=== PATIENT | male | born 1975 ===

== ENCOUNTER 2020-07-03 13:32 | Observation (INO) ==
[2020-07-03] MEDS ORDERED: NORMAL SALINE 1,000 ML IV ONE ×2 (14:38→15:52)
[2020-07-03] MEDS ORDERED: KETOROLAC TROMETHAMINE 30 MG/ML VIAL IV ONE (14:38)
[2020-07-03] MEDS ORDERED: ACETAMINOPHEN 1,000 MG/100 ML BTL IV ONE (14:38)
[2020-07-03 14:43] LABS: Hematocrit 45.1 % (42.0-52.0); Hemoglobin 15.2 gm/dL (13.5-18.0); Mean Cell Volume 83.5 fl (78-100); Mean Corpuscular Hemoglobin 28.1 pg (27-31); Mean Corpuscular Hgb Conc 33.7 g/dl (32-36); Mean Platelet Volume 9.2 fl (8-11.3); Platelet Count 357 K/mm3 (150-450); Red Cell Distribution Width 13.1 % (11.5-14.0); White Blood Count 7.3 K/mm3 (4.0-10.5)
[2020-07-03 14:47] LABS: Total Cells Counted 100
--- NOTE | 2020-07-03 14:47 | ERNOTE ---
Date of Service: 07/03/20 Time Seen by Provider: 07/03/20 14:33 Stated Complaint: covid positive uri Presenting Symptoms:: cough, other - SOB Source: patient Exam Limitations: no limitations Immunizations: IMMUNIZATION HX Immunizations Up to Date Yes History of Influenza Vaccine No Hx Pneumococcal Vaccination No Allergies/Adverse Reactions: Allergies No Known Allergies Allergy (Unverified 07/03/20 14:14) Home Medications: HOME MEDICATIONS NK 07/03/20 [Last Taken Unknown] - History of Present Ilness Narrative: Patient presents to the ED for SOB. He developed symptoms on the and had positive COVID test on the . His SOB has worsened. Worse with exertion and better with rest. CP with cough and breathing. Fevers. Has not seen anyone else for this. No vomiting or abdominal pain. Timing: constant, getting worse Severity: severe Frequency/Possible Cause: Reports: other - COVID Modifying Factors - Improves: Reports: rest Modifying Factors - Worsens: Reports: activity Associated Symptoms: Reports: chest pain/soreness, cough, shortness of breath, fever/chills Prior Treatment: Denies: recently seen Review of Systems - Review of Systems Constitutional: Absent: fever EYE: Present: no symptoms reported ENT: Absent: sore throat Respiratory: Present: See HPI Cardiology: Present: See HPI Gastrointestinal/Abdominal: Absent: abdominal pain Genitourinary: Present: no symptoms reported All Other Systems: All systems neg except as marked Medical History (Last Reviewed 07/03/20 @ 14:45 by Emery Butler MD) No pertinent past medical history Surgical History: Surgical History (Last Reviewed 07/03/20 @ 14:45 by Emery Butler MD) H/O hand surgery left History of ankle surgery Family History: Family History (Last Reviewed 07/03/20 @ 14:45 by Emery Butler MD) Other No pertinent family history Social History: (Last Reviewed 07/03/20 @ 14:45 by Emery Butler MD) Tobacco: Smoking Status: Former smoker Alcohol: alcohol intake frequency: holiday/special occasion Substance Use: substance use type: does not use Physical Exam - Physical Exam General Appearance: Present: alert, no apparent distress Head Exam: Present: normal inspection, no evidence of injury Eye Exam: Normal inspection: bilateral, PERRL: bilateral Ears, Nose, Throat: Present: normal ENT inspection Neck: Present: normal inspection Respiratory: Present: other - coarse breath sounds bilaterally. Mild tachypnea Cardiovascular/Chest: Present: tachycardia Gastrointestinal/Abdominal: Present: normal bowel sounds, nontender, nondistended, soft Back Exam: Absent: CVA tenderness (R), CVA tenderness (L) Extremity Exam: Present: normal inspection, normal range of motion Neurological Exam: Present: alert, no motor/sensory deficits Skin Exam: Present: normal color, warm/dry Progress - Results and Orders Patient's Lab Results:: I have reviewed the patient's lab results. - Vital Signs Patient's Vital Signs:: I have reviewed the patient's vital signs. Vital Signs: Vital Signs 07/03/20 13:32 Temperature 36.8 C Pulse Rate 107 H Respiratory Rate 20 Blood Pressure 156/78 H O2 Sat by Pulse Oximetry 87 L - EKG EKG #1 EKG read: Interp. by me EKG Comments: Sinus tachycardia rate 115. Non-specific ST/T wave changes, no STEMI noted - Progress/Reassessment Chief Complaint: Upper Respiratory Symptoms Progress Note-Subjective: 07/03/20 16:34 Patient has hypoxia with resting sats less than 90% persistently. Placed on O2. Witht eh COVID and elevted d-dimer Lovenox given. Will admit. I discussed the case with Dr Ghosh, discussed labs, vitals and imaging and she will see the patient in the hospital. Departure Clinical Impression: Pneumonia due to COVID-19 virus, Hypoxia - Departure Disposition: Still a patient Condition: Fair
[2020-07-03 15:11] LABS: ALT 37 U/L (19-67); AST 41 U/L (0-48); Albumin * 3.1 gm/dl (3.4-5.0); Alkaline Phosphatase * 69 U/L (50-170); Anion Gap 12.2 mmol/L (6.8-13.8); BNP * 43 pg/mL (5-140); BUN/Creatinine Ratio 15.1 (9.0-21.6); Bilirubin, Total 0.7 mg/dL (0.0-1.1); Blood Urea Nitrogen 18 mg/dL (6-23); Ca. Corrected For Albumin 9.4 mg/dL (8.4-10.2); Carbon Dioxide 28.6 mmol/L (24-32.6); Chloride 99 mmol/L (97-106); Glucose * 108 mg/dL (70-110); Potassium 3.8 mmol/L (3.4-4.6); Sodium 136 mmol/L (132-142); Total Protein 7.8 gm/dL (6.2-8.2)
[2020-07-03 15:12] LABS: Troponin I Less than 0.017 ng/mL (0.00-0.10)
[2020-07-03 15:20] LABS: Atypical (Reactive) Lymph 2 % (0-2); Band 2 % (0-2.0); Eosinophil 3 % (0-3); Lymphocyte 7 % (20-51); Monocyte 4 % (0-9); Neutrophil 82 % (42-75)
[2020-07-03 15:21] LABS: Platelet Estimate Normal (NORMAL); RBC Morphology Normal (NORMAL)
[2020-07-03] MEDS ORDERED: DEXAMETHASONE SODIUM PHOSP/PF 10 MG/ML VIAL IV ONE (15:47)
[2020-07-03] MEDS ORDERED: ENOXAPARIN SODIUM 100 MG/ML SYRG SC ONE ×2 (16:20→22:55)
[2020-07-03] MEDS ORDERED: ENOXAPARIN SODIUM 80 MG/0.8 ML DISP.SYRIN SC ONE (16:30)
[2020-07-03] MEDS ORDERED: ENOXAPARIN SODIUM 30 MG/0.3 ML SYRG SC ONE (16:30)
[2020-07-03] MEDS ORDERED: ACETAMINOPHEN 325 MG TABLET PO PRN (19:05)
[2020-07-03] MEDS ORDERED: REMDESIVIR 200 MG in NORMAL SALINE 210 ML IV ONE (19:25)
[2020-07-03] MEDS ORDERED: REMDESIVIR 100 MG in NORMAL SALINE 230 ML IV SCH (19:30)
--- NOTE | 2020-07-03 19:40 | HP ---
Chief Complaint - Chief Complaint Date of Service: 07/03/20 Time of Service: 19:34 Chief Complaint: I had cough fever and worsening shortness of breath for more than 1 week. History of Present Illness: 44-year-old male with no significant past medical history was evaluated in our ER for cough, fever, and worsening shortness of breath of several days duration. Patient reports his symptoms started with a productive cough a week ago and after that he developed fever and chills. The patient also reports being fatigued and lacking energy. 4 days ago he started noticing that he was becoming short of breath even with mild exertion this morning his symptoms worsened which prompted him to come to the ER for evaluation. The patient was diagnosed with COVID-19 pneumonia on the but says his symptoms started at 8. Therefore he is within a 10-day window so we will consider administering them to severe during his hospitalization. Medical History (Last Reviewed 07/03/20 @ 17:23 by Merced Brooks RN) No pertinent past medical history Surgical History: Surgical History (Last Reviewed 07/03/20 @ 17:23 by Merced Brooks RN) H/O hand surgery left History of ankle surgery Family History: Family History (Last Reviewed 07/03/20 @ 17:23 by Merced Brooks RN) Other No pertinent family history Social History: (Last Reviewed 07/03/20 @ 17:23 by Merced Brooks RN) Tobacco: Smoking Status: Former smoker Alcohol: alcohol intake frequency: holiday/special occasion Substance Use: substance use type: does not use Peds Patient Hx - Developmental: No Pertinent Hx Peds Patient Hx - Medical: No Pertinent Hx Peds Patient Hx - Cardiac/Respiratory: No Pertinent Hx Peds Patient Hx - Surgical: No Surgical History Patient History - Cancer: No Hx of Cancer Review Of Systems (GEN) - Review of Systems Generalized/Overall Review: Present: Weakness, Chills, Fever, Fatigue EENTM: Present: No Symptoms Reported Respiratory: Present: Cough, Shortness of Breath Cardiac: Present: No Symptoms Reported Abdominal: Present: No Symptoms Reported Genitourinary: Present: No Symptoms Reported Musculoskeletal: Present: No Symptoms Reported Neurological: Present: No Symptoms Reported Skin: Present: No Symptoms Reported Endocrine: Present: No Symptoms Reported Immunizations: IMMUNIZATION HX Immunizations Up to Date Yes History of Influenza Vaccine No Hx Pneumococcal Vaccination No Allergies/Adverse Reactions: Allergies Allergy/AdvReac Type Severity Reaction Status Date / Time No Known Allergies Allergy Unverified 07/03/20 17:23 Home Medications: HOME MEDICATIONS NK 07/03/20 [Last Taken Unknown] Exam - Exam Vital Signs: Vital Signs - Last Taken Temp 36.8 C 07/03/20 16:33 Pulse 92 07/03/20 17:13 Resp 16 07/03/20 16:33 BP 131/71 07/03/20 16:33 Pulse Ox 91 L 07/03/20 16:33 Constitutional: Present: Alert, Oriented x3, Cooperative, Well developed, Well nourished, No distress, Obese ENT Exam: Present: normal ENT inspection, hearing grossly normal Eye Exam: bilateral eye: normal inspection, PERRL, EOMI Neck: Present: non-tender, full range of motion, supple, normal inspection, trachea midline Back Exam: Present: normal inspection, no CVA tenderness, no vertebral tenderness Breasts: Present: Exam deferred, Nontender Respiratory: Present: no respiratory distress, no accessory muscle use, crackles - Scattered crackles bilaterally Cardiovascular/Chest: Present: normal peripheral pulses, regular rate, rhythm, no chest tenderness, no edema, no gallop, no JVD, no murmur, no rub Peripheral Pulses: dorsalis-pedis (R): 3+, dorsalis-pedis (L): 3+ Abdomen: Present: Normal bowel sounds, soft, nontender, nondistended, no rebound tenderness, no hepatospenomegaly, no masses, obese, tender, guarding /Rectal: Present: Exam deferred Extremity: Present: normal range of motion, non-tender, normal inspection, no pedal edema, no calf tenderness, normal capillary refill, pelvis stable Skin Exam: Present: normal color, warm/dry, no cyanosis Lymphatic: Present: no adenopathy Neurologic: Present: 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, normal cerebellar test, no motor/sensory deficits, alert, normal mood/affect, oriented x 3 Appearance: Present: appropriate appearance, appropriate insight, neat, no memory impairment Eye contact: Present: cooperative, good eye contact, normal speech Thoughts: Present: normal thought pattern, no apparent hallucination Diagnostic Studies: Abnormal Lab Results 07/03/20 07/03/20 07/03/20 Range/Units 14:35 14:35 14:35 Neutrophils % (Manual) 82 H (42-75) % Lymphocytes % (Manual) 7 L (20-51) % Lymphocytes # (Manual) 0.5 L (1.5-3.5) k/mm3 D-Dimer (0.19-0.49) ug/mL Albumin 3.1 L (3.4-5.0) gm/dl Procalcitonin Less than 0.05 L (0.05-0.50) ng/mL 07/03/20 Range/Units 14:35 Neutrophils % (Manual) (42-75) % Lymphocytes % (Manual) (20-51) % Lymphocytes # (Manual) (1.5-3.5) k/mm3 D-Dimer 2.52 H (0.19-0.49) ug/mL Albumin (3.4-5.0) gm/dl Procalcitonin (0.05-0.50) ng/mL Laboratory Results WBC 7.3 K/mm3 (4.0-10.5) 07/03/20 14:35 RBC 5.40 M/mm3 (4.7-6.0) 07/03/20 14:35 Hgb 15.2 gm/dL (13.5-18.0) 07/03/20 14:35 Hct 45.1 % (42.0-52.0) 07/03/20 14:35 MCV 83.5 fl (78-100) 07/03/20 14:35 MCH 28.1 pg (27-31) 07/03/20 14:35 MCHC 33.7 g/dl (32-36) 07/03/20 14:35 RDW 13.1 % (11.5-14.0) 07/03/20 14:35 Plt Count 357 K/mm3 (150-450) 07/03/20 14:35 MPV 9.2 fl (8-11.3) 07/03/20 14:35 Neutrophils % (Manual) 82 % (42-75) H 07/03/20 14:35 Band Neuts % (Manual) 2 % (0-2.0) 07/03/20 14:35 Lymphocytes % (Manual) 7 % (20-51) L 07/03/20 14:35 Monocytes % (Manual) 4 % (0-9) 07/03/20 14:35 Eosinophils % (Manual) 3 % (0-3) 07/03/20 14:35 Neutrophils # (Manual) 6.0 K/mm3 (1.3-6.0) 07/03/20 14:35 Lymphocytes # (Manual) 0.5 k/mm3 (1.5-3.5) L 07/03/20 14:35 Monocytes # (Manual) 0.3 k/mm3 (0.0-1.0) 07/03/20 14:35 Eosinophils # (Manual) 0.2 k/mm3 (0.0-0.7) 07/03/20 14:35 Atypic/Reactive Lymphs 2 % (0-2) 07/03/20 14:35 Toxic Vacuolation Trace 07/03/20 14:35 Platelet Estimate Normal (NORMAL) 07/03/20 14:35 RBC Morphology Normal (NORMAL) 07/03/20 14:35 D-Dimer 2.52 ug/mL (0.19-0.49) H 07/03/20 14:35 Sodium 136 mmol/L (132-142) 07/03/20 14:35 Plasma Sodium 136 mmol/L (130-142) 07/03/20 14:35 Potassium 3.8 mmol/L (3.4-4.6) 07/03/20 14:35 Chloride 99 mmol/L (97-106) 07/03/20 14:35 Carbon Dioxide 28.6 mmol/L (24-32.6) 07/03/20 14:35 Anion Gap 12.2 mmol/L (6.8-13.8) 07/03/20 14:35 BUN 18 mg/dL (6-23) 07/03/20 14:35 Creatinine 1.19 mg/dL (0.4-1.4) 07/03/20 14:35 Est GFR (Non-Af Amer) 71 mL/min (60-130) 07/03/20 14:35 BUN/Creatinine Ratio 15.1 (9.0-21.6) 07/03/20 14:35 Random Glucose 108 mg/dL (70-110) 07/03/20 14:35 Calcium 9.0 mg/dL (7.9-10.9) 07/03/20 14:35 Calcium Adj for Albumin 9.4 mg/dL (8.4-10.2) 07/03/20 14:35 Total Bilirubin 0.7 mg/dL (0.0-1.1) 07/03/20 14:35 AST 41 U/L (0-48) 07/03/20 14:35 ALT 37 U/L (19-67) 07/03/20 14:35 Alkaline Phosphatase 69 U/L (50-170) 07/03/20 14:35 Troponin I Less than 0.017 ng/mL (0.00-0.10) 07/03/20 14:35 B-Natriuretic Peptide 43 pg/mL (5-140) 07/03/20 14:35 Total Protein 7.8 gm/dL (6.2-8.2) 07/03/20 14:35 Albumin 3.1 gm/dl (3.4-5.0) L 07/03/20 14:35 Procalcitonin Less than 0.05 ng/mL (0.05-0.50) L 07/03/20 14:35 Assessment/Plan - Narrative Narrative: Patient was evaluated medical chart was reviewed and decision to admit to [facility] for diagnosis of COVID-19 pneumonia with hypoxia was made. Patient has been transferred to his room where he is resting comfortably but continues to have shortness of breath. We have stabilized his breathing O2 by nasal cannula which he is tolerating without any issues. The patient is a good candidate for remdesivir so we will obtain consent and start treatment. Daily CMP is have been ordered for monitoring of his renal and liver function. We will reevaluate him in the morning.
[2020-07-03] MEDS ORDERED: ENOXAPARIN SODIUM 40 MG/0.4 ML SYRG SC SCH (21:00)
[2020-07-03] MEDS: PANTOPRAZOLE SODIUM 20 MG TABLET.DR PO SCH (23:47)
[2020-07-04 07:01] LABS: Albumin * 2.6 gm/dl (3.4-5.0); Anion Gap 12.2 mmol/L (6.8-13.8); BUN/Creatinine Ratio 18.8 (9.0-21.6); Bilirubin, Total 0.5 mg/dL (0.0-1.1); Ca. Corrected For Albumin 9.3 mg/dL (8.4-10.2); Calcium * 8.5 mg/dL (7.9-10.9); Carbon Dioxide 25.3 mmol/L (24-32.6); Potassium 4.5 mmol/L (3.4-4.6); Total Protein 6.6 gm/dL (6.2-8.2)
[2020-07-04] MEDS: PANTOPRAZOLE SODIUM 20 MG TABLET.DR PO SCH (07:25)
[2020-07-04] MEDS ORDERED: ENOXAPARIN SODIUM 100 MG/ML SYRG SC SCH (09:00)
--- NOTE | 2020-07-04 12:29 | DS ---
Date of Discharge:: 07/04/20 Hospital Course: 44-year-old male admitted for COVID-19 pneumonia was evaluated at bedside this morning was found to be afebrile and in no acute distress. Patient has improved dramatically since arriving at our facility, he is now saturating at 100% on room air. The patient has had no recurrence of fever or chills and says this morning he woke up very energetic and alert which would be the first time in several days. He even asked if he could go home and continue recuperating there especially since his most bothersome symptom which is the cough has improved significantly, the patient says he coughs less frequently than before which allowed him to rest unlike before. Given the dramatic improvement of the patient's condition and response to the treatment that he has received here I am in agreement with sending him home with instructions to take Tylenol for fever or chills and Mucinex for his cough. He was also instructed to complete his 10-day quarantine before returning to work or leaving his home for any other purpose. Procedures Performed: none Results and Findings: Lab Pending Results 07/03/20 14:35: WBC 7.3, RBC 5.40, Hgb 15.2, Hct 45.1, MCV 83.5, MCH 28.1, MCHC 33.7, RDW 13.1, Plt Count 357, MPV 9.2, Neutrophils % (Manual) 82 H, Band Neuts % (Manual) 2, Lymphocytes % (Manual) 7 L, Monocytes % (Manual) 4, Eosinophils % (Manual) 3, Neutrophils # (Manual) 6.0, Lymphocytes # (Manual) 0.5 L, Monocytes # (Manual) 0.3, Eosinophils # (Manual) 0.2, Atypic/Reactive Lymphs 2, Toxic Vacuolation Trace, Platelet Estimate Normal, RBC Morphology Normal 07/03/20 14:35: Sodium 136, Plasma Sodium 136, Potassium 3.8, Chloride 99, Carbon Dioxide 28.6, Anion Gap 12.2, BUN 18, Creatinine 1.19, Est GFR (Non-Af Amer) 71, BUN/Creatinine Ratio 15.1, Random Glucose 108, Calcium 9.0, Calcium Adj for Albumin 9.4, Total Bilirubin 0.7, AST 41, ALT 37, Alkaline Phosphatase 69, Troponin I Less than 0.017, B-Natriuretic Peptide 43, Total Protein 7.8, Albumin 3.1 L 07/03/20 14:35: Procalcitonin Less than 0.05 L 07/03/20 14:35: D-Dimer 2.52 H 07/04/20 06:45: Sodium 138, Plasma Sodium 138, Potassium 4.5, Chloride 105, Carbon Dioxide 25.3, Anion Gap 12.2, BUN 18, Creatinine 0.96, Est GFR (Non-Af Amer) 90 D, BUN/Creatinine Ratio 18.8, Random Glucose 129 H, Calcium 8.5, Calcium Adj for Albumin 9.3, Total Bilirubin 0.5, AST 34, ALT 41, Alkaline Phosphatase 59, Total Protein 6.6, Albumin 2.6 L Discharge Location: Home Disposition: Home self-care Condition: Fair Face to Face Encounter completed per [facility] Guidelines: No Discharge Activity: Activity as tolerated Discharge Diet: General/regular food Additional Patient Instructions (free text): [facility] will call you on Monday with follow up appointment. Prescriptions (Any new or edited meds): guaiFENesin [Mucinex] 1,200 mg PO Q4H #30 tab.er.12h Transmission Status: Pending to [id number] Benzonatate [Tessalon Perle] 100 mg PO Q2H PRN #30 tab PRN Reason: Cough Transmission Status: [id number] Complete Home Medications List: Complete Home Medication List: Benzonatate [Tessalon Perle] 100 mg PO Q2H PRN #30 tab 07/04/20 guaiFENesin [Mucinex] 1,200 mg PO Q4H #30 tab.er.12h 07/04/20 Forms: Patient Portal Registration
[2020-07-04 13:43] VITALS: BP 134/73
== END 2020-07-04 14:34 | disposition home or self-care (01) ==
LOC: ER 13:32 → MS 13:32
PROVIDERS: ADMIT Family Medicine; ATTEND Family Medicine